=== PATIENT | female | born 1935 | race African-American/Black ===

== ENCOUNTER 2018-02-10 17:11 | Emergency (ER) | payer OTHER ==
[~2018-02-10] VITALS: Ht 157.5 cm; Wt 63.5 kg
[~2018-02-10 17:11] MED LIST: ASPIR 8181 MG; CARVEDILOL25 MG; CARVEDILOL6.25 MG PO; CATAPRES0.2 MG; DOXAZOSIN MESYLA2 MG; HYDRALAZINE HCL50 MG; KAYEXALATE15 GM/60 M; LANTUS100 U/ML SQ; LASIX20 MG; NIFEDIPINE ER30 MG PO; PLAVIX75 MG; PNEU16DI2; SYNTHROID50 MCG; [UNRECOGNIZED DRUG - CODE]
[2018-02-10] MEDS ORDERED: CARVEDILOL12.5 MG (17:26)
== END 2018-02-10 22:40 | disposition home or self-care (01) ==
LOC: ER 17:11
DX: G45.8 Other transient cerebral ischemic attacks and related syndromes (principal)

== ENCOUNTER 2018-05-19 16:04 | Emergency (ER) | payer OTHER ==
[~2018-05-19] VITALS: Ht 165.1 cm; Wt 68.9 kg
[~2018-05-19 16:04] MED LIST changes: +CARVEDILOL12.5 MG
[2018-05-19] MEDS ORDERED: SYNTHROID100 MCG (16:22)
== END 2018-05-19 19:43 | disposition home or self-care (01) ==
LOC: ER 16:04
DX: R41.0 Disorientation, unspecified (principal); I16.0 Hypertensive urgency; I10 Essential (primary) hypertension

== ENCOUNTER 2018-05-31 20:54 | Emergency (ER) | payer OTHER ==
[~2018-05-31] VITALS: Ht 157.5 cm; Wt 68.0 kg
[~2018-05-31 20:54] MED LIST changes: +SYNTHROID100 MCG
== END 2018-05-31 23:00 | disposition home or self-care (01) ==
LOC: ER 20:54
DX: S00.03XA Contusion of scalp, initial encounter (principal); W18.09XA Striking against other object with subsequent fall, initial encounter; Y93.89 Activity, other specified; Y92.018 Other place in single-family (private) house as the place of occurrence of the external cause; Y99.8 Other external cause status

== ENCOUNTER 2018-06-01 15:45 | Outpatient (CLI) | payer OTHER | END 2018-06-01 16:38 | disposition home or self-care (01) | LOC: NUCLEAR 15:45 | DX: I73.9 Peripheral vascular disease, unspecified (principal); I77.1 Stricture of artery ==

== ENCOUNTER → 2018-06-01 | Emergency (ER) | payer OTHER | END | disposition left against medical advice (07) | LOC: ER 17:11 | DX: Z53.20 Procedure and treatment not carried out because of patient's decision for unspecified reasons (principal) ==

== ENCOUNTER → 2018-08-17 | Emergency (ER) | payer OTHER ==
[~2018-08-17] VITALS: Ht 152.4 cm; Wt 67.6 kg
[~2018-08-17] MED LIST changes: +CALCIUM500 M1
== END | disposition left against medical advice (07) ==
LOC: ER 17:47
DX: L53.9 Erythematous condition, unspecified (principal)

== ENCOUNTER → 2020-11-03 | Emergency (ER) | payer OTHER ==
[~2020-11-03] VITALS: Ht 152.4 cm; Wt 59.0 kg
[~2020-11-03] MED LIST changes: +ACETAMINOPHEN650 M2 PO; +LANTHANUM CAR1000 MG PO; +SERTRALINE HCL50 MG PO; +VITAMIN D3250 MCG PO
== END | disposition left against medical advice (07) ==
LOC: ER 17:43
DX: S05.11XA Contusion of eyeball and orbital tissues, right eye, initial encounter (principal); W18.39XA Other fall on same level, initial encounter; Y93.01 Activity, walking, marching and hiking; Y92.018 Other place in single-family (private) house as the place of occurrence of the external cause; Y99.8 Other external cause status

== ENCOUNTER 2020-11-05 15:13 | Emergency (ER) | payer OTHER ==
[~2020-11-05] VITALS: Ht 165.1 cm; Wt 67.6 kg
[~2020-11-05 15:13] MED LIST changes: -ACETAMINOPHEN650 M2 PO; -LANTHANUM CAR1000 MG PO; -SERTRALINE HCL50 MG PO; -VITAMIN D3250 MCG PO
[2020-11-05] MEDS ORDERED: SERTRALINE HCL50 MG PO (15:47)
[2020-11-05] MEDS ORDERED: VITAMIN D3250 MCG PO (15:47)
[2020-11-05] MEDS ORDERED: LANTHANUM CAR1000 MG PO (15:48)
[2020-11-05] MEDS ORDERED: ACETAMINOPHEN650 M2 PO (19:05)
== END 2020-11-05 19:38 | disposition home or self-care (01) ==
LOC: ER 15:13
DX: S05.11XD Contusion of eyeball and orbital tissues, right eye, subsequent encounter (principal); W18.09XD Striking against other object with subsequent fall, subsequent encounter

== ENCOUNTER 2021-04-14 09:52 | Emergency (ER) | payer OTHER ==
[~2021-04-14] VITALS: Ht 165.1 cm; Wt 59.0 kg
[~2021-04-14 09:52] MED LIST changes: +ACETAMINOPHEN650 M2 PO; +LANTHANUM CAR1000 MG PO; +SERTRALINE HCL50 MG PO; +VITAMIN D3250 MCG PO
== END 2021-04-14 13:15 | disposition home or self-care (01) ==
LOC: ER 09:52
DX: S70.12XA Contusion of left thigh, initial encounter (principal); S90.32XA Contusion of left foot, initial encounter; S80.02XA Contusion of left knee, initial encounter; W18.09XA Striking against other object with subsequent fall, initial encounter; Y93.89 Activity, other specified; Y92.010 Kitchen of single-family (private) house as the place of occurrence of the external cause; Y99.8 Other external cause status

== ENCOUNTER 2021-10-29 16:57 | Emergency (ER) | payer OTHER ==
[~2021-10-29] VITALS: Ht 157.5 cm; Wt 59.0 kg
[2021-10-29] MEDS ORDERED: ORPHENADRINE C100 MG PO (20:04)
== END 2021-10-29 20:28 | disposition home or self-care (01) ==
LOC: ER 16:57
DX: S10.83XA Contusion of other specified part of neck, initial encounter (principal); V43.62XA Car passenger injured in collision with other type car in traffic accident, initial encounter; Y93.89 Activity, other specified; Y92.488 Other paved roadways as the place of occurrence of the external cause; M62.838 Other muscle spasm; Z88.1 Allergy status to other antibiotic agents

== ENCOUNTER → 2021-11-19 | Emergency (ER) | payer OTHER ==
[~2021-11-19] VITALS: Ht 167.6 cm; Wt 54.0 kg
[~2021-11-19] MED LIST changes: +ORPHENADRINE C100 MG PO
== END | disposition home or self-care (01) ==
LOC: ER 11:22
DX: M54.50 Low back pain, unspecified (principal); Z88.1 Allergy status to other antibiotic agents; W18.30XA Fall on same level, unspecified, initial encounter; Y93.01 Activity, walking, marching and hiking; Y92.019 Unspecified place in single-family (private) house as the place of occurrence of the external cause